=== PATIENT | male | born 1960 | race Caucasian/White ===

== ENCOUNTER 2017-10-10 15:26 | Outpatient (RCR) | payer MEDICARE ==
--- NOTE | 2017-06-27 13:55 | Oncology Note ---
Patient calls the clinic today to request a prednisone taper for increased pain. Patient has a history of DVT with multiple recurrence despite anticoagulation therapy. In review of previous notes Dr. Andino had recommended the use of prednisone 20 mg 5 days followed by 10 mg 5 days followed by 5 mg 2 days and then discontinuation. I will call this prescription in to [facility]. REMI HERNANDEZ DREDGE PUMP OPERATOR-BC, ONC Jun 27, 2017 13:55
[~2017-10-10] VITALS: Ht 22.9 cm; Wt 97.0 kg
[~2017-10-10 15:26] MED LIST: ACE500 PO; ACET-1966 PO; AMO500 PO; ASP325 PO; ASP81 PO; ASPI-1471 PO; ASPI-719 PO; CEFU500T10 PO; CELE-1 PO; DABI150C3 PO; DOC100 PO; ENO100I SC; ENOX100D5 SQ; EPIN15AE IH; HEPARIN SQ; HYDR2TAB74 PO; IBUP-1618 PO; LOR7.5/325 PO; MORIR15 PO; MORS15 PO; NAPR-1043 PO; NAPR220C12 PO; OMEP-218 PO; OXYC-865 PO; OXYIR PO; OXYM22SP3 NS; PER PO; PRED-1 PO; RANI-324 PO; SULF-198 PO; WAR5 PO; [UNRECOGNIZED DRUG - CODE] PO; [UNRECOGNIZED DRUG - OTHER] PO
[2017-10-10 15:37] VITALS: BP 151/101
[2017-10-10] MEDS ORDERED: PRED-1 PO (16:17)
[2017-10-10] MEDS ORDERED: PANT40TA65 PO (16:17)
--- NOTE | 2017-10-10 16:30 | ONC Progress Note - NP.Halsey ---
Patient History Date of Service Oct 10, 2017 Reason For Visit/HPI Patient is a 56-year-old male who is seen in the clinic for review of his hypercoagulable state with recurrent DVT for nearly 20 years. Patient is currently maintained on Lovenox 100 mg twice daily and will take aspirin and Celebrex as needed. Patient had an acute episode of increased palpable pea- sized nodules on his left lower extremity in June and as they develops to quarter -sized nodules he called the clinic for a prednisone prescription for prednisone. Patient was started on prednisone 20 mg 5 days followed by 10 mg 5 days followed by 5 mg 2 and it was discontinued. Patient reported that his symptoms resolved and he has not had any recurrent symptoms in the lower extremities. Patient does share that today he is having increased tightness of the chest with associated acid reflux. He has been taking zegrigard over-the- counter on a daily basis but has been out of the prescription for the last few days. He feels that his lungs are tight and he has more difficulty breathing. He does not feel that he needs a chest x-ray and denies any upper respiratory infection symptoms. His oxygen saturations are 95% on room air, he does have an elevated blood pressure today of 151 of 101 and a pulse of 91. Patient reports that he would like to follow with Dr. Flores in 6 months and we' ll continue to see me alternating visits. Problem List (1) History of DVT (deep vein thrombosis) (2) Pain of left lower extremity (3) Recurrent deep venous thrombosis (4) Recurrent pulmonary embolism (5) Bilateral edema of lower extremity (6) Blanca filter in place (7) Anticoagulant long-term use (8) Hypercholesterolemia (9) FH: brain cancer (10) FH: pulmonary embolism (11) FH: CVA (cerebrovascular accident) (12) Family history of blood clots Oncology History Patient is a 56-year-old male who has hypercoagulable state with recurrent DVT for nearly over 20 years. He had his first episode of DVT in the right lower extremity, the second one in the left lower extremity associated with pulmonary embolus, and the patient has an IVC filter placed. His third episode was bilateral DVT from the lower extremities up to the Blanca filter, and the first episode was in the left lower extremity. 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 Patient also had a Doppler ultrasound of the lower extremities bilaterally on August 03, 2011 which revealed at that time new DVT in the right popliteal vein. There was also thrombosis of the proximal superficial veins of the common femoral arteries bilaterally. He had a recurrent DVT of the left lower extremity and he received Pradaxa in September 2011. This was switched on failure, to Lovenox 100 mg twice daily, and the patient is maintained on that dose since then. Patient thinks that Lovenox is working better for him than other medications, despite the fact he reports superficial DVT. Patient was started on prednisone to decrease inflammation and his symptoms resolved. When patient feels that he is getting superficial DVT he will take 3 aspirin for several days in a row. On June 27, 2015 he developed another DVT in the left lower extremity. He started to take aspirin twice a day. PAST MEDICAL HISTORY 1. Recurrent DVT. 2. Hypercholesterolemia. 3. Migraine headache. PAST SURGICAL HISTORY IVC filter placement. Medical History Family History: Blood clots MATERNAL AUNT MATERNAL UNCLE FH: CVA (cerebrovascular accident) MATERNAL GRANDMOTHER PATERNAL GRANDMOTHER\ FH: brain cancer MOTHER FH: pulmonary embolism MOTHER Psychosocial History Social History Patient is . He has one daughter. He is disabled. Denies any abuse of tobacco, alcohol or drugs. He has about two drinks per month. Smoking History: No Smoking Status: Never Smoker, Former Smoker Exposure to Second Hand Smoke?: No Medications and Allergies Active Scripts Pantoprazole Sodium (PANTOPRAZOLE SODIUM) 40 Mg Tablet.dr, 40 MG PO QDAY, #30 TAB.SR 11 Refills Prov:REMI HERNANDEZ-ARSH, ONC 10/10/17 Prednisone 10 Mg Tab (PREDNISONE 10 MG TAB) 10 Mg Tablet, 20 MG PO QDAY for PAIN for 12 Days, #16 TAB 1 Refill Take 20mg po daily x 5 days and then 10mg x 5 days and then 5mg x 2 days then discontinue. Prov:REMI HERNANDEZ-BC, ONC 10/10/17 Enoxaparin Sodium (LOVENOX) 100 Mg/1 Ml Disp.syrin, 100 MG SQ Q12H for anticoagulation, #60 MG 9 Refills Inject 1ml (1 syringe) undre the skin twice daily. Prov:REMI HERNANDEZ-BC, ONC 08/30/17 Reported Medications Acetaminophen (TYLENOL) 325 Mg Tablet, 325 MG PO PRN, TAB 10/16/16 Naproxen Sodium (ALEVE) 220 Mg Capsule, 220 MG PO TID, CAPSULE 10/16/16 Aspirin (ASPIR 81) 81 Mg Tablet.dr, 81 MG PO QDAY, TAB take 3tabs 10/16/16 [zagarede] Unknown Strength No Conflict Check, PO DAILY Y, 0 Refills 09/26/11 Discontinued Reported Medications Ranitidine Hcl (ZANTAC) 150 Mg Tablet, 150 MG PO QDAY 06/07/15 Discontinued Scripts Celecoxib (CELEBREX) 200 Mg Capsule, 200 MG PO QDAY, #30 CAPSULE 6 Refills Prov:REMI HERNANDEZ DIRECTOR PAYMENT-BC, ONC 02/24/16 Allergies: Coded Allergies: No Known Allergies (Verified Allergy, Mild, 06/07/15) Review of System/Physical Exam Review of Systems All Systems Reviewed/Normal: Yes, Except as Noted Respiratory: Positive for Wheezing, Positive for Other (tightness of the chest) Hematologic: Positive for Fatigue Musculoskeletal: Positive for Muscle Pain Skin: Positive for Lumps Physical Exam Vital Signs Temperature: 98.6 Pulse: 91 BP Systolic: 151 BP Diastolic: 101 Respiratory Rate: 16 O2 SAT: 95 O2 Delivery: Room Air Height (inches) 9.00 Weight lb: 194 Weight oz: 3.0 Weight Kg (Heriberto): 92.079 Pain: 8 ECOG Score: 1 General: Stable, Well Developed, Well Nourished, Not In Acute Distress HEENT: No Trauma, No Conjunctivitis, No Icterus Neck: Supple Lungs: Clear to Auscultation Heart: Regular Rate, Regular Rhythm (elevated blood pressure), No Gallops, No Murmurs Abdomen: Soft and Nontender, No Hepatosplenomegaly Extremities: No Cyanosis, No Clubbing, No Edema Lymphadenopathy: No Cervical Psychiatric: Mood appears normal, Affect appears normal Skin: No Skin Rashes, No Bruising, No Purpura Diagnostic Studies Diagnostic Studies Laboratory Patient brought in [facility] labs drawn recently. White cell count is 4.5, platelet of 245,000, hemoglobin of 14.5. His chemistry was completely unremarkable. Cholesterol was elevated at 200 with triglycerides elevated. Vitamin D was 66.8, PSA was 1.4, TSH was 1.17. Assessment and Plan Assessment & Plan 1. Chronic recurrent venous thromboembolus, currently on Lovenox 100 mg subcutaneously twice daily and aspirin p.r.n. whenever he got pain in his lower extremity. Patient's thrombophilia workup came back positive for heterozygous state for methylenetetrahydrofolate reductase [id number] mutation. Patient followed with Dr. Jones four months ago with the recommendation of taking Lovenox 100 mg subcutaneously twice daily, and to take a baby aspirin daily and to be cautious about bleeding. He will complete a Doppler ultrasounds if he would get pain in his lower extremities suggestive of a recurrent DVT. He is agreeable with the plan of management. He would like to follow with Dr. Flores in place of Dr. Jones and will schedule an appointment with her in 6 months and see her in [place]. He would like to keep the local connection and will follow with me in one year. 2. History of migraine headache. 3. History of hypercholesterolemia. Recent labs reviewed 4. Tightness of the chest, does not want a CT scan or x-ray today. Has requested prednisone trial period first. I will agree with this plan and start him on prednisone taper. In addition I will give patient 1 refill so if he has symptoms and I am not available he can start the regimen immediately. 5. Acid reflux noted today. This is possibly the cause of patient's tightness of the chest. Previously his he has used [id number] therapy. I will prescribe 40 mg of Prilosec. PLAN 1. Continue Lovenox 100 mg subcutaneously twice daily. 2. Baby aspirin 81 mg orally daily. 3. Patient to follow with Dr. Flores in [place] in 6 months and will follow with myself in 6 months. 4. Consider Doppler ultrasound bilaterally if the patient will develop pain in his lower extremities. 5. Patient is to contact us for any new concerns or complaints. I personally spent a total of 30 minutes. Of that 25 minutes was counseling/ coordination of patient's care. See my note above for details. Copies to: JARON FLORES MD, NANCY J DIRECTOR PAYMENT-BC, ONC Oct 10, 2017 16:30
== END 2017-10-24 08:59 | disposition home or self-care (01) ==
LOC: ONC 15:26
PROVIDERS: ATTEND Nurse Practitioner Family
DX: I82.509 Chronic embolism and thrombosis of unspecified deep veins of unspecified lower extremity (principal); E72.12 Methylenetetrahydrofolate reductase deficiency; Z79.01 Long term (current) use of anticoagulants; K21.9 Gastro-esophageal reflux disease without esophagitis; Z87.891 Personal history of nicotine dependence; Z79.82 Long term (current) use of aspirin; Z79.899 Other long term (current) drug therapy; R06.2 Wheezing; R53.83 Other fatigue
CPT/HCPCS: 99212